=== PATIENT | male | born 1990 | race Caucasian/White ===

== ENCOUNTER 2024-02-21 04:31 | Emergency (ER) | payer OTHER, SELFPAY ==
[2024-02-21 04:34] VITALS: BP 161/95; BMI 22.5
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
== END 2024-02-21 05:20 | disposition home or self-care (01) ==
LOC: EMR 04:31
PROVIDERS: EMERGENCY PHYSICIAN Emergency Medicine
DX: S00.03XA Contusion of scalp, initial encounter (principal); S00.81XA Abrasion of other part of head, initial encounter; F10.129 Alcohol abuse with intoxication, unspecified; Y04.2XXA Assault by strike against or bumped into by another person, initial encounter; R03.0 Elevated blood-pressure reading, without diagnosis of hypertension; Z96.641 Presence of right artificial hip joint
CPT/HCPCS: 99282